=== PATIENT | female | born 1975 | race Caucasian/White ===

== ENCOUNTER 2016-11-08 16:04 | Outpatient (CLI) | payer BC ==
--- NOTE | 2016-11-08 17:31 | DIAGNOSTIC IMAGING REPORT ---
PROCEDURE: XR WRIST MIN 3 VIEWS - LEFT INDICATION: PAIN TECHNIQUE: Four views of the left wrist. COMPARISON: None. FINDINGS: Normal mineralization. No fractures. Normal osseous alignment. There is calcific tendonitis adjacent to the scaphoid bone. IMPRESSION: 1. Calcific tendonitis lateral to the scaphoid bone.
== END 2016-11-08 23:00 ==
LOC: XR SRH 16:04
DX: M65.242 Calcific tendinitis, left hand (principal)